=== PATIENT | male | born 1995 ===

== ENCOUNTER 2016-10-23 09:20 | Emergency (ER) | payer OTHER ==
[2016-10-23] MEDS ORDERED: ONDANSETRON 4 MG/2ML 2 ML VIAL ONE (11:16)
[2016-10-23] MEDS ORDERED: LACTATED RINGERS 1,000 ML ONE (11:16)
[2016-10-23 11:33] LABS: BASO % 0.6 % (0.2-1.0); EOS # 0.1 (0.0-0.5); EOS % 1.1 % (0.9-2.9); HEMATOCRIT 48.8 % (32.0-52.0); HEMOGLOBIN 16.4 gm/l (14.0-18.0); IMM NEUT% 0.3 % (0-1); LYMPH # 1.8 (1.0-4.8); LYMPH % 28.5 % (15-45); MEAN CELL VOLUME 83.1 fl (80.0-94.0); MEAN CORPUSCULAR HEMOGLOBIN 27.9 pg (27.0-31.0); MEAN CORPUSCULAR HGB CONC 33.6 g/dl (33.0-37.0); MEAN PLATELET VOLUME 12.1 fl (7.4-10.4); MONO # 0.5 (0.0-0.8); MONO % 7.9 % (4-12); NEUT % 61.6 % (43-75); PLATELET COUNT 204 K/mm3 (130-400); RED CELL DISTRIBUTION WIDTH 12.3 % (11.5-14.5)
[2016-10-23 11:48] LABS: ALB/GLOB RATIO 1.6 (>1.0); ALBUMIN 5.3 gm/dL (3.5-5.7); CALCIUM 10.5 mg/dL (8.6-10.3)
[2016-10-23] MEDS ORDERED: ACETAMINOPHEN 500 MG TABLET ONE (12:21)
[2016-10-23] MEDS ORDERED: MAALOX/LIDO2%VISC/SIMETHICONE 40 ML BOT ONE (12:21)
== END 2016-10-23 13:36 | disposition home or self-care (01) ==
LOC: ED 09:20
DX: R11.2 Nausea with vomiting, unspecified (principal); R10.9 Unspecified abdominal pain
CPT/HCPCS: 83690; 85025; 80053; 99283 ×2; 96374; 96361; A9270 ×2; J2405; J7120